=== PATIENT | male | born 1945 | race Caucasian/White ===

== ENCOUNTER 2017-11-22 09:16 | Inpatient (IN) | payer MEDICARE, OTHER ==
[2017-11-22] MEDS: CEFEPIME 2GM/50 ML (PMX) 50 ML IVPB (09:46)
[2017-11-22] MEDS: VANCOMYCIN 1 GM (PMX) 250 ML IVPB (10:00)
[2017-11-22 10:34] LABS: WHITE BLOOD COUNT 8.7 10^3/ul (4.8-10.8)
[2017-11-22 10:34] LABS: ABNORMAL IP MESSAGE 1; ADD MAN DIFF? YES; HEMATOCRIT 34.8 % (42.0-52.0); HEMOGLOBIN 11.9 g/dl (14.0-18.0); MEAN CORPUSCULAR HEMOGLOBIN 36.4 pg (29.0-33.0); MEAN CORPUSCULAR HGB CONC 34.2 g/dl (32.0-37.0); MEAN CORPUSCULAR VOLUME 106.4 fl (82.0-101.0); MEAN PLATELET VOLUME 11.1 fl (7.4-10.4); PLATELET COUNT 196 10^3/UL (140-415); POSITIVE DIFF @See below; RED BLOOD COUNT 3.27 10^6/ul (4.70-6.10); RED CELL DISTRIBUTION WIDTH 17.3 % (11.5-14.5)
[2017-11-22 10:53] LABS: INR 0.95; PROTIME 12.8 Sec (11.9-14.9)
[2017-11-22 10:54] LABS: PARTIAL THROMBOPLASTIN TIME 36.7 Sec (25.0-35.0)
[2017-11-22 10:58] LABS: ALANINE AMINOTRANSFERASE 21 IU/L (13-69); ALBUMIN 3.5 g/dl (3.3-4.9); ALBUMIN/GLOBULIN RATIO 0.94; ALKALINE PHOSPHATASE 66 IU/L (42-121); ANION GAP 19 (8-16); ASPARTATE AMINO TRANSFERASE 17 IU/L (15-46); BILIRUBIN,INDIRECT 0.7 mg/dl (0-1.1); BILIRUBIN,TOTAL 0.7 mg/dl (0.2-1.3); BLOOD UREA NITROGEN 28 mg/dl (7-20); CALCIUM 8.6 mg/dl (8.4-10.2); CARBON DIOXIDE 18 mmol/L (21-31); CHLORIDE 97 mmol/L (97-110); CREATININE 1.64 mg/dl (0.61-1.24); GLUCOSE 234 mg/dl (70-220); POTASSIUM 3.7 mmol/L (3.5-5.1); SODIUM 130 mmol/L (135-144); TOTAL PROTEIN 7.2 g/dl (6.1-8.1)
[2017-11-22 11:03] LABS: LACTIC ACID 2.5 mmol/L (0.5-2.0)
[2017-11-22 11:13] LABS: TROPONIN-I < 0.012 ng/ml (0.00-0.12)
[2017-11-22] MEDS: SODIUM CHLORIDE 0.9% 1L BAG IV* (11:15)
[2017-11-22] MEDS: ACETAMINOPHEN 325 MG TAB PO ×2 (11:15→20:29)
[2017-11-22 11:19] LABS: ANISOCYTOSIS 1+ (0-0); BAND NEUTROPHILS #M 0.1 10^3/ul (0.0-0.6); BAND NEUTROPHILS % (M) 2 % (0-4); LYMPHOCYTES #M 0.6 10^3/ul (0.8-2.9); LYMPHOCYTES % (M) 7 % (15-51); MONOCYTE #M 0.3 10^3/ul (0.3-0.9); MONOCYTES % (M) 4 % (0-11); PLATELET ESTIMATE NORMAL; SEG NEUT #M 7.6 10^3/ul (1.7-7.5); SEGMENTED NEUTROPHILS (M) % 87 % (39-77); SMUDGE%M 1 % (0-0)
[2017-11-22] MEDS ORDERED: ONDANSETRON 4 MG INJ IV ×2 (11:30→13:00)
[2017-11-22] MEDS ORDERED: ACETAMINOPHEN 325 MG TAB PO (11:30)
[2017-11-22] MEDS ORDERED: GLUCOSE GEL 15 GRAM TUBE PO ×2 (13:00)
[2017-11-22] MEDS ORDERED: GLUCOSE GEL 15 GRAM TUBE BUCCAL (13:00)
[2017-11-22] MEDS ORDERED: DEXTROSE 50% 50 ML SYRINGE IV ×2 (13:00)
[2017-11-22] MEDS ORDERED: GLUCAGON 1 MG INJ IM (13:00)
[2017-11-22] MEDS ORDERED: HYDROCODONE/APAP (5/325) TAB PO (13:00)
[2017-11-22 13:01] LABS: ADD UMIC YES; UR ASCORBIC ACID NEGATIVE (NEGATIVE); UR BACTERIA MANY /HPF (NONE SEEN); UR BILIRUBIN (Dip) NEGATIVE (NEGATIVE); UR BLOOD (Dip) 2+ mg/dL (NEGATIVE); UR BUDDING YEAST FEW /HPF (NONE SEEN); UR CLARITY CLOUDY (CLEAR); UR COLOR YELLOW (YELLOW); UR GLUCOSE (Dip) NEGATIVE (NEGATIVE); UR KETONES (Dip) NEGATIVE (NEGATIVE); UR LEUKOCYTE ESTERASE (Dip) 3+ Leu/ul (NEGATIVE); UR MUCUS FEW /HPF (NONE SEEN); UR NITRITE (Dip) POSITIVE (NEGATIVE); UR NONSQUAMOUS EPITHELIAL CELL 2 /HPF (NONE SEEN); UR RBC 6 /HPF (0-5); UR SPECIFIC GRAVITY (Dip) 1.015 (1.003-1.030); UR TOTAL PROTEIN (Dip) 2+ mg/dl (NEGATIVE); UR UROBILINOGEN (Dip) NEGATIVE (NEGATIVE); UR WBC > 182 /HPF (0-5)
[2017-11-22 14:02] LABS: LACTIC ACID 1.3 mmol/L (0.5-2.0)
[2017-11-22] MEDS: PIPER-TAZO 2.25 GM (PMX) 50 ML IVPB ×2 (14:55→22:55)
[2017-11-22] MEDS: SOD CHLORIDE 0.9% 1,000 ML IV ×4 (14:57→20:31)
[2017-11-22 16:26] LABS: LACTIC ACID 1.6 mmol/L (0.5-2.0)
[2017-11-22] MEDS: METOPROLOL 5 MG INJ IV (16:30)
[2017-11-22] MEDS: FLUCONAZOLE 200 MG/NS (PMX) 100 ML IVPB (18:13)
[2017-11-22] MEDS: FAMOTIDINE 20 MG TAB PO (20:29)
[2017-11-22] MEDS: INSULIN ASPART [NOVOLOG] 3 ML PEN SC ×2 (20:40→21:00)
[2017-11-22] MEDS ORDERED: FILGRASTIM SNDZ IJ (21:00)
[2017-11-23] MEDS: ACCU-CHEK XX (02:00)
[2017-11-23] MEDS: SOD CHLORIDE 0.9% 1,000 ML IV ×2 (05:41→15:36)
[2017-11-23] MEDS: PIPER-TAZO 2.25 GM (PMX) 50 ML IVPB ×3 (05:41→17:36)
[2017-11-23 06:02] LABS: ABNORMAL IP MESSAGE 1; HEMATOCRIT 25.5 % (42.0-52.0); HEMOGLOBIN 8.6 g/dl (14.0-18.0); MEAN CORPUSCULAR HEMOGLOBIN 36.4 pg (29.0-33.0); MEAN CORPUSCULAR HGB CONC 33.7 g/dl (32.0-37.0); MEAN CORPUSCULAR VOLUME 108.1 fl (82.0-101.0); MEAN PLATELET VOLUME 11.8 fl (7.4-10.4); PLATELET COUNT 129 10^3/UL (140-415); POSITIVE DIFF @See below; RED BLOOD COUNT 2.36 10^6/ul (4.70-6.10); RED CELL DISTRIBUTION WIDTH 17.5 % (11.5-14.5)
[2017-11-23 06:02] LABS: WHITE BLOOD COUNT 7.2 10^3/ul (4.8-10.8)
[2017-11-23 06:25] LABS: ANION GAP 13 (8-16); BLOOD UREA NITROGEN 19 mg/dl (7-20); CALCIUM 7.7 mg/dl (8.4-10.2); CARBON DIOXIDE 17 mmol/L (21-31); CHLORIDE 111 mmol/L (97-110); CREATININE 1.18 mg/dl (0.61-1.24); GLUCOSE 131 mg/dl (70-220); POTASSIUM 3.4 mmol/L (3.5-5.1); SODIUM 138 mmol/L (135-144)
[2017-11-23 06:35] LABS: ADD MAN DIFF? YES
[2017-11-23] MEDS: ACETAMINOPHEN 325 MG TAB PO (08:44)
[2017-11-23] MEDS: FAMOTIDINE 20 MG TAB PO ×2 (08:45→21:16)
[2017-11-23] MEDS: INSULIN ASPART [NOVOLOG] 3 ML PEN SC ×4 (08:51→21:16)
[2017-11-23] MEDS: ENOXAPARIN 30 MG/0.3 ML SYG SC (08:53)
[2017-11-23 09:25] LABS: ANISOCYTOSIS 1+ (0-0); BAND NEUTROPHILS % (M) 15 % (0-4); BASOPHILS % (M) 1 % (0-2); EOSINOPHILS % (M) 1 % (0-7); GIANT THROMBO% (M) 2 % (0-0); LYMPHOCYTES #M 0.2 10^3/ul (0.8-2.9); LYMPHOCYTES % (M) 3 % (15-51); MONOCYTES % (M) 1 % (0-11); PLATELET ESTIMATE DECREASED; POIKILOCYTOSIS 1+ (0-0); SEG NEUT #M 5.8 10^3/ul (1.7-7.5); SEGMENTED NEUTROPHILS (M) % 79 % (39-77); SMUDGE%M 8 % (0-0)
[2017-11-23] MEDS: POTASSIUM CHLORIDE 50 ML IVPB (12:43)
[2017-11-23] MEDS: FLUCONAZOLE 200 MG/NS (PMX) 100 ML IVPB (15:36)
[2017-11-24] MEDS: PIPER-TAZO 2.25 GM (PMX) 50 ML IVPB ×4 (00:02→17:16)
[2017-11-24] MEDS: ACCU-CHEK XX (02:00)
[2017-11-24] MEDS: SOD CHLORIDE 0.9% 1,000 ML IV ×4 (05:45→20:46)
[2017-11-24] MEDS: INSULIN ASPART [NOVOLOG] 3 ML PEN SC ×4 (08:00→20:43)
[2017-11-24 08:05] LABS: ABNORMAL IP MESSAGE 1; HEMATOCRIT 24.4 % (42.0-52.0); HEMOGLOBIN 8.3 g/dl (14.0-18.0); MEAN CORPUSCULAR HEMOGLOBIN 36.7 pg (29.0-33.0); MEAN PLATELET VOLUME 11.6 fl (7.4-10.4); PLATELET COUNT 110 10^3/UL (140-415); POSITIVE DIFF @See below; RED BLOOD COUNT 2.26 10^6/ul (4.70-6.10)
[2017-11-24 08:05] LABS: WHITE BLOOD COUNT 5.1 10^3/ul (4.8-10.8)
[2017-11-24 08:09] LABS: ADD MAN DIFF? YES
[2017-11-24] MEDS: FAMOTIDINE 20 MG TAB PO ×2 (08:30→20:41)
[2017-11-24] MEDS: ENOXAPARIN 30 MG/0.3 ML SYG SC (08:30)
[2017-11-24 08:36] LABS: ANION GAP 13 (8-16); BLOOD UREA NITROGEN 12 mg/dl (7-20); CALCIUM 7.7 mg/dl (8.4-10.2); CARBON DIOXIDE 20 mmol/L (21-31); CHLORIDE 108 mmol/L (97-110); CREATININE 1.06 mg/dl (0.61-1.24); GLUCOSE 154 mg/dl (70-220); POTASSIUM 3.1 mmol/L (3.5-5.1); SODIUM 138 mmol/L (135-144)
[2017-11-24 10:15] LABS: ANISOCYTOSIS 1+ (0-0); BAND NEUTROPHILS #M 0.6 10^3/ul (0.0-0.6); BAND NEUTROPHILS % (M) 12 % (0-4); BASOPHILS % (M) 1 % (0-2); EOSINOPHILS % (M) 1 % (0-7); GIANT THROMBO% (M) 1 % (0-0); LYMPHOCYTES #M 1.3 10^3/ul (0.8-2.9); LYMPHOCYTES % (M) 27 % (15-51); MONOCYTE #M 0.1 10^3/ul (0.3-0.9); MONOCYTES % (M) 2 % (0-11); PLATELET ESTIMATE DECREASED; POLYCHROMASIA 1+ (0-0); REACTIVE LYMPHOCYTES #M 0.1 10^3/ul (0.0-0.0); REACTIVE LYMPHOCYTES% (M) 2 % (0-0); SEG NEUT #M 2.8 10^3/ul (1.7-7.5); SEGMENTED NEUTROPHILS (M) % 55 % (39-77); SMUDGE%M 3 % (0-0)
[2017-11-24] MEDS: POTASSIUM CHLORIDE (SR) 20 MEQ TAB PO (10:23)
[2017-11-24] MEDS: POTASSIUM CHLORIDE 50 ML IVPB ×3 (11:38→13:59)
[2017-11-24] MEDS: FLUCONAZOLE 200 MG/NS (PMX) 100 ML IVPB (16:09)
[2017-11-24] MEDS: SOD CHLORIDE 0.9% 250 ML IV (20:45)
[2017-11-25] MEDS: PIPER-TAZO 2.25 GM (PMX) 50 ML IVPB ×3 (01:23→11:55)
[2017-11-25] MEDS: ACCU-CHEK XX (01:28)
[2017-11-25 05:51] LABS: ABNORMAL IP MESSAGE 1; HEMATOCRIT 24.2 % (42.0-52.0); HEMOGLOBIN 8.2 g/dl (14.0-18.0); MEAN CORPUSCULAR HEMOGLOBIN 36.9 pg (29.0-33.0); MEAN CORPUSCULAR HGB CONC 33.9 g/dl (32.0-37.0); MEAN PLATELET VOLUME 11.6 fl (7.4-10.4); PLATELET COUNT 93 10^3/UL (140-415); POSITIVE DIFF @See below; RED BLOOD COUNT 2.22 10^6/ul (4.70-6.10)
[2017-11-25 05:51] LABS: WHITE BLOOD COUNT 2.6 10^3/ul (4.8-10.8)
[2017-11-25 06:18] LABS: ADD MAN DIFF? YES
[2017-11-25 06:20] LABS: ANION GAP 12 (8-16); BLOOD UREA NITROGEN 9 mg/dl (7-20); CARBON DIOXIDE 21 mmol/L (21-31); CHLORIDE 110 mmol/L (97-110); CREATININE 0.99 mg/dl (0.61-1.24); GLUCOSE 142 mg/dl (70-220); POTASSIUM 3.7 mmol/L (3.5-5.1); SODIUM 139 mmol/L (135-144)
[2017-11-25 07:20] LABS: ANISOCYTOSIS 1+ (0-0); BAND NEUTROPHILS #M 0.3 10^3/ul (0.0-0.6); BAND NEUTROPHILS % (M) 15 % (0-4); BASOPHILS % (M) 1 % (0-2); EOSINOPHILS % (M) 1 % (0-7); LYMPHOCYTES #M 1.6 10^3/ul (0.8-2.9); LYMPHOCYTES % (M) 65 % (15-51); PLATELET ESTIMATE DECREASED; POLYCHROMASIA 2+ (0-0); SEG NEUT #M 0.5 10^3/ul (1.7-7.5); SEGMENTED NEUTROPHILS (M) % 18 % (39-77)
[2017-11-25] MEDS: SOD CHLORIDE 0.9% 1,000 ML IV (07:52)
[2017-11-25] MEDS: INSULIN ASPART [NOVOLOG] 3 ML PEN SC ×2 (07:54→11:55)
[2017-11-25] MEDS: FAMOTIDINE 20 MG TAB PO (08:16)
[2017-11-25] MEDS: ENOXAPARIN 30 MG/0.3 ML SYG SC (08:19)
== END 2017-11-25 13:19 | disposition home health service (06) | DRG 872 ==
LOC: E/R 09:16 → PP2 11:27
PROC: 0T2BX0Z Change Drainage Device in Bladder, External Approach (ICD-10-PCS; principal; 2017-11-22)
DX: A41.9 Sepsis, unspecified organism (principal); N17.9 Acute kidney failure, unspecified; E87.2 Acidosis; N39.0 Urinary tract infection, site not specified; C85.90 Non-Hodgkin lymphoma, unspecified, unspecified site; I48.91 Unspecified atrial fibrillation; B96.20 Unspecified Escherichia coli [E. coli] as the cause of diseases classified elsewhere; Z93.59 Other cystostomy status; E11.9 Type 2 diabetes mellitus without complications; C60.9 Malignant neoplasm of penis, unspecified; R51 Headache; B96.5 Pseudomonas (aeruginosa) (mallei) (pseudomallei) as the cause of diseases classified elsewhere
CPT/HCPCS: 36415; 70450; 71045; 80048; 80053; 81001; 82962; 83605; 83735; 84484; 85025; 85610; 85730; 87040; 87086; 87400; 93005; 96365; 96366; 96368; 96375; 97162; 99291-25

== ENCOUNTER 2018-05-21 11:30 | Emergency (ER) | payer MEDICARE, OTHER ==
[2018-05-21 14:28] LABS: ADD MAN DIFF? NO
[2018-05-21 14:31] LABS: BASOPHILS % 0.3 % (0.0-2.0); EOSINOPHILS # 0.1 10^3/ul (0.0-0.5); EOSINOPHILS % 0.5 % (0.0-7.0); HEMOGLOBIN 13.9 g/dl (14.0-18.0); LYMPHOCYTES # 0.8 10^3/ul (0.8-2.9); LYMPHOCYTES % 6.4 % (15.0-51.0); MEAN CORPUSCULAR HGB CONC 33.1 g/dl (32.0-37.0); MEAN CORPUSCULAR VOLUME 105.8 fl (82.0-101.0); MEAN PLATELET VOLUME 10.5 fl (7.4-10.4); MONOCYTES % 8.4 % (0.0-11.0); NEUTROPHIL # 10.1 10^3/ul (1.6-7.5); PLATELET COUNT 221 10^3/UL (140-415); POSITIVE DIFF @See below; RED BLOOD COUNT 3.97 10^6/ul (4.70-6.10); RED CELL DISTRIBUTION WIDTH 13.6 % (11.5-14.5)
[2018-05-21] MEDS: ONDANSETRON 4 MG INJ IV (14:32)
[2018-05-21] MEDS: SODIUM CHLORIDE 0.9% 1L BAG IV* (14:32)
[2018-05-21] MEDS: morphine 4 MG/ML VIAL IV (14:32)
[2018-05-21 14:49] LABS: ALANINE AMINOTRANSFERASE 19 IU/L (13-69); ALBUMIN 4.1 g/dl (3.3-4.9); ALKALINE PHOSPHATASE 70 IU/L (42-121); ANION GAP 15 (8-16); ASPARTATE AMINO TRANSFERASE 14 IU/L (15-46); BILIRUBIN,INDIRECT 0.9 mg/dl (0-1.1); BILIRUBIN,TOTAL 0.9 mg/dl (0.2-1.3); BLOOD UREA NITROGEN 18 mg/dl (7-20); CALCIUM 8.8 mg/dl (8.4-10.2); CARBON DIOXIDE 21 mmol/L (21-31); CHLORIDE 107 mmol/L (97-110); CREATININE 1.04 mg/dl (0.61-1.24); GLUCOSE 192 mg/dl (70-220); SODIUM 139 mmol/L (135-144); TOTAL PROTEIN 7.8 g/dl (6.1-8.1)
[2018-05-21 14:50] LABS: LACTIC ACID 1.9 mmol/L (0.5-2.0)
[2018-05-21 15:02] LABS: INR 1.04; PROTIME 13.7 Sec (11.9-14.9); PT RATIO 1.1; TROPONIN-I < 0.012 ng/ml (0.000-0.120)
[2018-05-21 15:03] LABS: PARTIAL THROMBOPLASTIN TIME 23.3 Sec (25.0-35.0)
[2018-05-21] MEDS: CEFEPIME 2GM/50 ML (PMX) 50 ML IVPB (15:23)
[2018-05-21] MEDS: MAGNESIUM SULFATE 1 GM/D5W 100 ML IVPB (15:24)
[2018-05-21 15:25] LABS: ADD UMIC YES; UR ASCORBIC ACID NEGATIVE (NEGATIVE); UR BACTERIA FEW /HPF (NONE SEEN); UR BILIRUBIN (Dip) NEGATIVE (NEGATIVE); UR BLOOD (Dip) 2+ mg/dL (NEGATIVE); UR CLARITY CLOUDY (CLEAR); UR COLOR YELLOW (YELLOW); UR GLUCOSE (Dip) 1+ mg/dL (NEGATIVE); UR KETONES (Dip) NEGATIVE (NEGATIVE); UR LEUKOCYTE ESTERASE (Dip) 3+ Leu/ul (NEGATIVE); UR MUCUS FEW /HPF (NONE SEEN); UR NITRITE (Dip) POSITIVE (NEGATIVE); UR RBC 9 /HPF (0-5); UR SPECIFIC GRAVITY (Dip) 1.018 (1.003-1.030); UR TOTAL PROTEIN (Dip) NEGATIVE (NEGATIVE); UR UROBILINOGEN (Dip) NEGATIVE (NEGATIVE); UR WBC > 182 /HPF (0-5)
[2018-05-21] MEDS: VANCOMYCIN 1 GM (PMX) 250 ML IVPB (16:04)
[2018-05-21] MEDS: ACETAMINOPHEN 500 MG TAB PO (16:16)
[2018-05-21 17:52] LABS: LACTIC ACID 1.1 mmol/L (0.5-2.0)
[2018-05-21 23:06] LABS: LACTIC ACID 1.5 mmol/L (0.5-2.0)
== END 2018-05-22 01:30 | disposition short-term general hospital (02) ==
LOC: E/R 05-22 01:30
DX: A41.9 Sepsis, unspecified organism (principal); T83.511A Infection and inflammatory reaction due to indwelling urethral catheter, initial encounter; I10 Essential (primary) hypertension; E11.9 Type 2 diabetes mellitus without complications; Y73.8 Miscellaneous gastroenterology and urology devices associated with adverse incidents, not elsewhere classified; Z85.49 Personal history of malignant neoplasm of other male genital organs; Z87.891 Personal history of nicotine dependence
CPT/HCPCS: 36415; 71045; 74176; 80053; 81001; 83605; 84484; 85025; 85610; 85730; 87040; 87086; 93005; 96374; 96375; 99285-25

== ENCOUNTER 2018-07-27 11:33 | Emergency (ER) | payer MEDICARE, OTHER | END 2018-07-27 13:00 | disposition home or self-care (01) | LOC: E/R 11:33 | DX: N30.90 Cystitis, unspecified without hematuria (principal); N50.89 Other specified disorders of the male genital organs; E11.9 Type 2 diabetes mellitus without complications; I10 Essential (primary) hypertension; Z79.84 Long term (current) use of oral hypoglycemic drugs; Z85.49 Personal history of malignant neoplasm of other male genital organs | CPT/HCPCS: 87086; 99283 ==